=== PATIENT | female | born 1990 | race Caucasian/White ===

== ENCOUNTER 2020-03-07 07:51 | Inpatient (IN) | payer OTHER, SELFPAY ==
[2020-03-07] VITALS (75 sets, daily range): BP systolic 68–128; BP diastolic 47–87; PULSE 75–103; RESP 12–16; TEMP 36.2–37.3; O2SAT 95–100; BMI 29.2
[2020-03-07] MEDS: AMPICILLIN 2 GM/NS 100 ML 2 GM/100 ML BAG IVPB (08:58)
[2020-03-07] MEDS: OXYTOCIN 30 UNITS/NS 500 ML 30 UNITS/500 ML BAG IV CONT (08:59)
[2020-03-07] MEDS: LACTATED RINGERS 1,000 ML 125 ML IV CONT ×2 (09:00→10:09)
--- NOTE | 2020-03-07 09:06 | WPDHPUPDATE1 ---
History and Physical Update Update Date/Time: 03/07/20 09:06 History and Physical has been reviewed, including an updated exam of the patient. There are NO changes in the patient's condition. Risks, benefits, and alternatives have been discussed and questions answered. Patient agrees to proceed with procedure.
--- NOTE | 2020-03-07 09:06 | WPDOBADMIT ---
Obstetrics - Admit Note Admission Note: record reviewed. No pertinent additions to the history and/or any subsequent changes in the physical findings that are not consistent with the expected course of the were found. Additions to the history and/or subsequent changes in the physical findings follow. None.
--- NOTE | 2020-03-07 09:08 | WPDHPUPDATE1 ---
History and Physical Update Update Date/Time: 03/07/20 09:08 History and Physical has been reviewed, including an updated exam of the patient. There are NO changes in the patient's condition. Risks, benefits, and alternatives have been discussed and questions answered. Patient agrees to proceed with procedure.
[2020-03-07 09:14] LABS: Basophils Absolute Auto 0.1 K/mm3 (0.0-0.1); Basophils Percent Auto 0.5 % (0.2-1.2); Eosinophils Absolute Auto 0.2 K/mm3 (0-0.3); Eosinophils Percent Auto 1.3 % (0-4.4); Hematocrit 34.1 % (37.0-47.0); Hemoglobin 11.6 g/dL (12.0-15.0); Immature Granulocyte Absolute 0.08 K/mm3 (0.00-0.031); Immature Granulocyte Percent A 0.6 % (0-0.5); Lymphocytes Absolute Auto 2.23 K/mm3 (0.9-3.2); Lymphocytes Percent Auto 17.5 % (18.3-44.2); Mean Corpuscular Hemoglobin 30.5 pg (26-34); Mean Corpuscular Volume 89.7 fl (80-100); Mean Platelet Volume 12.6 fl (7.4-10.4); Monocytes Absolute Auto 1.5 K/mm3 (0.1-0.6); Monocytes Percent Auto 11.5 % (2.6-8.5); Neutrophils Absolute Auto 8.7 K/mm3 (1.3-6.7); Neutrophils Percent Auto 68.6 % (45.5-73.1); Platelet Count Result 165 k/mm3 (150-375); Red Cell Distribution Width 13.1 % (11.5-14.5); White Blood Count 12.7 K/mm3 (4.5-10.0)
--- NOTE | 2020-03-07 10:05 | WPDANESEPP ---
Anes - Eval Pre Procedure Procedure: labor epidural Date/Time: 03/07/20 10:05 Surgeon: rhonda Pre Op Diagnosis: Labor Patient Data Age: 29 Gender: F Height: 5 ft 3 in Weight: 75 kg Last Vital Signs Pulse 83 03/07/20 09:45 BP 112/79 03/07/20 09:45 Allergies Allergy/AdvReac Type Severity Reaction Status Date / Time No Known Allergies Allergy Verified 02/23/20 12:34 Home Medications Medication Instructions Recorded Confirmed Type PNV cmb#95-ferrous fumarate-FA 1 tablet PO DAILY 02/23/20 02/23/20 History [] Laboratory Tests 03/07/20 03/07/20 09:05 09:05 WBC 12.7 K/mm3 H K/mm3 (4.5-10.0) RBC 3.80 M/mm3 L M/mm3 (4.2-5.4) Hgb 11.6 g/dL L g/dL (12.0-15.0) Hct 34.1 % L % (37.0-47.0) MCV 89.7 fl fl (80-100) MCH 30.5 pg pg (26-34) MCHC 34.0 g/dl g/dl (32-36) RDW 13.1 % % (11.5-14.5) Plt Count 165 k/mm3 k/mm3 (150-375) MPV 12.6 fl H fl (7.4-10.4) Immature Gran % (Auto) 0.6 % H % (0-0.5) Neut % (Auto) 68.6 % % (45.5-73.1) Lymph % (Auto) 17.5 % L % (18.3-44.2) Pepin % (Auto) 11.5 % H % (2.6-8.5) Eos % (Auto) 1.3 % % (0-4.4) Baso % (Auto) 0.5 % % (0.2-1.2) Lymph # (Auto) 2.23 K/mm3 K/mm3 (0.9-3.2) Pepin # (Auto) 1.5 K/mm3 H K/mm3 (0.1-0.6) Eos # (Auto) 0.2 K/mm3 K/mm3 (0-0.3) Baso # (Auto) 0.1 K/mm3 K/mm3 (0.0-0.1) Abs Immat Gran (auto) 0.08 K/mm3 H K/mm3 (0.00-0.031) Absolute Neuts (auto) 8.7 K/mm3 H K/mm3 (1.3-6.7) Absolute Nucleated RBC 0.0 K/mm3 K/mm3 (0.0-0.012) Nucleated RBC % 0.0 % % (0.0-0.2) RPR Pending Patient hx anesthesia problems: none Family hx anesthesia problems: none [facility] Family History Family History (Updated 02/23/20 @ 12:36 by Lizeth Rodriguez RN) Other Unknown family medical history Social History Social History Substance use: never Spiritual care concerns: No Exam Day of Procedure 03/07/20 10:05
--- NOTE | 2020-03-07 10:11 | LDADM ---
This patient, Rand Carney, was admitted to Labor/Delivery/Recovery 108 on 03/07/20 at 07:51. Plans for labor, pain management and were discussed with patient. Patient/family oriented to hospital policies and general routines including ID bracelet, bed and alarms, visiting hours, pain management, procedures, bathroom and other care routines, personal items, smoking policy, room service/diet and guest tray routines, infant security routines, and visiting hours. Patient/Family are encouraged to report perceived risks to care and to ask questions if they do not understand what they are told or what they should do. See OBIX for further documentation.
--- NOTE | 2020-03-07 12:03 | PM.OBPRVD ---
OB - Delivery Note Procedure Route of delivery: Specimen: Yes (placenta due to MSF/long cord) Estimated blood loss (mL): 200 Anesthesia type: Epidural Disposition: floor Narrative: Patient was prepped and draped in usual manner for this procedure. Maternal expulsive efforts readily delivered the vertex. Nuchal cord was noted and reduced x5. The rest of baby was delivered without difficulty cord was clamped and cut and placenta delivered spontaneously. Cervix vagina and vulva were inspected no lacerations or tears noted no significant bleeding. At this point procedure was considered terminated. [place] Baby Weeks of gestation at delivery: 37 Infant gender: Female Weight (pounds): 5 Weight (ounces): 6 score one minute: 8 score five minutes: 9
[2020-03-07] MEDS: OXYTOCIN 30 UNITS/NS 500 ML 30 UNITS/500 ML BAG 125 UNITS IV CONT (12:35)
--- NOTE | 2020-03-07 15:17 | PC.NURSE ---
1510-Patient transferred to post room #284 via wheelchair. Support person present. Oriented to unit, room, information board, rooming in, admission packet and security measures. Patient verbalizes understanding.
--- NOTE | 2020-03-07 15:45 | PC.NURSE ---
Consulted with patient, mother reports she is able to independently latch without difficulties or discomfort. Mother breastfed first child for several months without issue. Mother is able to independently latch with appropriate positioning/alignment. was latched correctly. nursed eagerly, with steady draws and frequent swallowing noted. Reviewed signs of a correct latch, effective nursing and suck swallow ratio. was able to maintain latch without discomfort to mother. Nipple care reviewed. Instructed mother to call out for RN assistance if she is unable to latch infant for feeding or she has discomfort with nursing. Instructed feeding should be initiated three hours from start of last feeding or if feeding cues are noted before. Mother voiced understanding of information shared.
[2020-03-08 05:41] LABS: Hematocrit 34.1 % (37.0-47.0); Hemoglobin 11.7 g/dL (12.0-15.0)
[2020-03-08 07:11] LABS: Rapid Plasma Reagin Non-Reactive (NonReactive)
[2020-03-08] MEDS: IBUPROFEN 600 MG TABLET PO ×3 (07:19→19:16)
[2020-03-08] MEDS: DOCUSATE SODIUM 100 MG CAPSULE PO ×2 (07:19→17:47)
[2020-03-08] MEDS: MULTIVIT/MIN/PREN/FOL AC/IRON TABLET 1 TAB PO (07:20)
[2020-03-08] MEDS: LANOLIN (LANSINOH) 7.5 GM CREAM 1 APPLIC TOPICAL (07:20)
[2020-03-08 07:34] VITALS: BP 109/73; PULSE 111; RESP 18; TEMP 36.8
--- NOTE | 2020-03-08 07:50 | WPDANLDPN2 ---
Anes-Prog Note L&D Date/Time: 03/08/20 07:50 Comfortable throughout: labor and delivery Neuraxial method: epidural Epidural/Spinal procedure site: clean & non-tender Neuro status: Neuro function grossly intact. Cardiovascular status: normal Respiratory status: normal Airway patency: baseline Mental status: baseline Post-Op hydration status: normal Vital Signs: Last Vital Signs Temp 36.8 C 03/08/20 07:34 Pulse 111 H 03/08/20 07:34 Resp 18 03/08/20 07:34 BP 109/73 03/08/20 07:34 Pulse Ox 97 03/07/20 20:10 I/O: Intake & Output 03/07/20 03/07/20 03/08/20 15:59 23:59 07:59 Intake Total 1000 Balance 1000 Post-procedural complaints: none Patient feedback: Patient satisfied with anesthetic care.
[2020-03-08] MEDS: WITCH HAZEL 40 PADS 1 PAD TOPICAL (09:14)
[2020-03-08] MEDS: BENZOCAINE 20% AER SPR (*SP) 56 GM CAN 1 SPRAY TOPICAL (09:14)
--- NOTE | 2020-03-08 11:37 | PM.OBDSVD ---
DS: Admitting Diagnosis Admitting Diagnosis Admitting Diagnosis: Labor OB - DS: Summary OB Procedures : None OB Procedures Intrapartum: Spontaneous Vag Delivery OB Procedures: : None Time Spent with Patient Time attestation: Total time spent providing and/or coordinating discharge services: DS: Data Data Completed and Pending Pending studies at discharge: Pending at discharge 03/07/20 09:37 Surgical [PTH] Routine Labs on day of discharge: Labs from last 24 hours 03/08/20 03/07/20 05:04 09:05 Hgb 11.7 L Hct 34.1 L RPR Non-reactive Discharge Plan Discharge Discharging Clinician: Hong Russo Patient Disposition: Home, Self-Care Activity: as tolerated Diet: as tolerated Patient Instructions: Antibiotic Form Stand Alone Forms: General Discharge Information Follow-up/Referrals: Hong Russo MD [Physician] - 3 Weeks Discharge Medications: New ibuprofen 600 mg Tablet 600 mg PO Q6H PRN (Reason: Cramping) Qty: 30 RF: 0 Continued PNV cmb#95-ferrous fumarate-FA [] 28 mg iron- 800 mcg Tablet 1 tablet PO DAILY RF: 0 Date of admission: 03/07/20 07:51 Primary Care Provider: PHYSICIAN,CUPOLA REPAIRER Admitting Provider: Hong Russo Attending physician on admission: Hong Russo
[2020-03-08 19:20] VITALS: BP 118/64; PULSE 90; RESP 14; TEMP 36.8; O2SAT 100
[2020-03-09] MEDS: MULTIVIT/MIN/PREN/FOL AC/IRON TABLET 1 TAB PO (08:09)
[2020-03-09] MEDS: LANOLIN (LANSINOH) 7.5 GM CREAM 1 APPLIC TOPICAL (08:09)
[2020-03-09] MEDS: IBUPROFEN 600 MG TABLET PO (08:09)
--- NOTE | 2020-03-09 08:30 | PC.NURSE ---
Observed mother is able to independently latch with appropriate positioning/alignment. She denies any nipple discomfort, is feeding as required and waking infant to feed if needed. has had at least 8 effective feedings in the past 24 hours, and is currently meeting outcomes for weight, output, jaundice and feeding frequencies. Mother states she feels confident to continue effective at home. Reviewed transition to breast milk, signs of adequate intake, and engorgement/relief. Instructed to call [facility] if intake/output less than required. Reviewed regular medications mother is taking. Information provided per Emilia. Reviewed community resources on the [facility] website and in the Mom/Baby guide. Information on outpatient services provided. Mother has no further questions at this time.
--- NOTE | 2020-03-09 08:34 | PC.NURSE ---
Patient was given the opportunity to view the discharge video Mother & Baby Care, The First Two Weeks and to ask questions. Patient declined viewing the video and has been given the mother/baby guide for home reference.
[2020-03-09 08:35] VITALS: BP 111/71; PULSE 94; RESP 18; TEMP 36.9
[2020-03-10 07:51] VITALS: BP 108/77; PULSE 90; RESP 20; TEMP 36.8; O2SAT 99
--- NOTE | 2020-03-10 17:10 | PM.OBDSVD ---
DS: Admitting Diagnosis Admitting Diagnosis Admitting Diagnosis: Labor OB - DS: Summary OB Procedures : None OB Procedures Intrapartum: Spontaneous Vag Delivery OB Procedures: : None Time Spent with Patient Time attestation: Total time spent providing and/or coordinating discharge services: DS: Data Data Completed and Pending Completed studies during hospitalization: Pending at discharge 03/07/20 09:37 Surgical [PTH] Routine Discharge Plan Discharge Discharging Clinician: Hong Russo Patient Disposition: Home, Self-Care Activity: as tolerated Diet: as tolerated Discharge Instructions: Education: Mom and Baby Guide Given to: Mother Follow-Up: Call your delivering provider's office for an appointment to be seen in: 3 weeks Mom and baby [facility] for the follow-up appointment. Appointment Date/Time: February at 8:00 a.m. What to expect at your follow-up visit: Blood Pressure Check Physical Assessment Call [phone] if you are unable to keep your appointment time. BREAST CARE: * Wear a snug supportive bra. * For engorgement discomfort: Breast Feeding: * Apply warm moist washcloths * Express milk as needed to relieve engorgement * Wear loose clothing * For sore nipples: * Identify correct latch-on * Apply warm moist washcloths before and after nursing * Air dry nipples after nursing * May apply Lansinoh cream to nipples EPISIOTOMY/PERINEAL CARE: * Until bleeding stops, use your meenakshi bottle after urinating * Change your pad frequently throughout the day * You may take sitz baths several times a day (fill your bathtub with warm water and soak for 20 minutes.) Do NOT bathe in the water * No tub baths until seen by your physician - You may shower ACTIVITY: * Rest as much as possible. * Do not exercise or lift anything heavier than your baby (such as laundry or other children.) * Avoid stairs or driving as much as possible. * Do not put anything into the vagina. No douching, tampons, or sexual activity until seen by physician. NOTIFY PHYSICIAN IF YOU HAVE ANY QUESTIONS OR IF ANY OF THE FOLLOWING SYMPTOMS OCCUR: * If your vaginal bleeding becomes foul smelling. * If your vaginal bleeding becomes more heavy than a period or if your bleeding changes from pink to bright red. However, you may pass an occasional walnut-sized clot once or twice for the first week . * If you experience a sharp, shooting pain in you calves. * If you discover a hard, reddened area on your breast or if you experience flu-like symptoms. DIET: * Eat regular, well-balanced meals. * Drink plenty of fluids daily. Drink to thirst for . Stand Alone Forms: General Discharge Information Follow-up/Referrals: Hong Russo MD [Physician] - 3 Weeks Discharge Medications: New ibuprofen 600 mg Tablet 600 mg PO Q6H PRN (Reason: Cramping) Qty: 30 RF: 0 Continued PNV cmb#95-ferrous fumarate-FA [] 28 mg iron- 800 mcg Tablet 1 tablet PO DAILY RF: 0 Date of admission: 03/07/20 07:51 Primary Care Provider: PHYSICIAN,ELIGIBILITY SPECIALIST Admitting Provider: Hong Russo Discharge Date/Time: 03/09/20 09:28 Attending physician on admission: Hong Russo
== END 2020-03-09 09:28 | disposition home or self-care (01) | DRG 807 ==
LOC: ANHLDR 08:20 → ANHOB2 15:15
PROVIDERS: Admitting Provider Obstetrics & Gynecology; Visit Provider Obstetrics & Gynecology
DX: O99.824 Streptococcus B carrier state complicating childbirth (principal); Z37.0 Single live birth; Z3A.38 38 weeks gestation of pregnancy; O77.0 Labor and delivery complicated by meconium in amniotic fluid; O69.81X0 Labor and delivery complicated by cord around neck, without compression, not applicable or unspecified
CPT/HCPCS: 36415; 85014; 85018; 85025; 86592; 86850; 86900; 86901; 88307; A9270; J0290; J2590; J2795; J7120

== ENCOUNTER 2020-07-11 07:07 | Outpatient (CLI) | payer OTHER, SELFPAY ==
[2020-07-11 08:24] LABS: Beta HCG Quantitative < 2.39 mIU/ML
== END 2020-07-11 07:08 | disposition home or self-care (01) ==
PROVIDERS: Visit Provider Obstetrics & Gynecology
DX: N92.6 Irregular menstruation, unspecified (principal)
CPT/HCPCS: 36415; 84702